=== PATIENT | male | born 1990 | race Caucasian/White ===

== ENCOUNTER 2017-03-01 12:47 | Emergency (ER) | payer OTHER ==
[~2017-03-01] VITALS: Ht 167.6 cm; Wt 90.0 kg
[~2017-03-01 12:47] MED LIST: ADV25050; BENADRYL; CARB200T92; LEVA0.3112; MONT10TA21; NAPR250T; OMEP20CA16 PO; RANI150T9 PO
[2017-03-01 12:50] VITALS: Ht 167.6 cm; Wt 90.0 kg
--- NOTE | 2017-03-01 15:53 | ERD ---
ER Documentation Chief Complaint Date/Time DATE: 03/01/17 TIME: 15:52 Chief Complaint neck pain rad shoulders since wednesday HPI 26-year-old male presents with right lateral neck pain that is sharp shooting to his shoulder and right chest that started 3 days ago after he took out the trash. He also states that he has had a headache with this, it is achy, diffuse and has been intermittent for the last 3 days but improving with medication. His history includes epilepsy which she takes Tegretol and he has a prescription for Tylenol with codeine for pain any try this for his headache which has improved. He has not had any aura, seizures, fevers or chills, dizziness, diplopia, paresthesias or weakness. Patient denies trauma to the neck. He denies stiffness, rashes. ROS All systems reviewed and are negative except as per history of present illness. Medications Home Meds Active Scripts Cyclobenzaprine Hcl* (Cyclobenzaprine Hcl*) 5 Mg Tablet, 5 MG PO Q8H Y for PAIN , #15 TAB Prov:NARINDER FRANCISCO PA-C 03/01/17 Ranitidine Hcl* (Zantac*) 150 Mg Tablet, 150 MG PO BID Y for NAUSEA, #30 TAB Prov:NARINDER FRANCISCO PA-C 10/22/14 Omeprazole* (Omeprazole*) 20 Mg Capsule.dr, 20 MG PO BID for 7 Days, CAP Prov:NARINDER FRANCISCO PA-C 10/22/14 Reported Medications Montelukast Sodium* (Singulair*) 10 Mg Tablet 12/31/09 Benadryl 12/31/09 Levalbuterol* (Xopenex*) 0.31 Mg/3 Ml Nebu 12/31/09 Salmeterol Xinaf/Fluticasone* (Advair 250/50 Diskus*) 1 Inh Inha 12/31/09 Naproxen* (Naprosyn*) 250 Mg Tablet 12/31/09 Carbamazepine (Tegretol) 200 Mg Tablet 12/31/09 Allergies Allergies: Coded Allergies: No Known Drug Allergies (Verified Allergy, Mild, 10/22/14) PMhx/Soc History of Surgery: Yes ( LOWER BACK.NASAL POLYP REMOVAL) Anesthesia Reaction: No Hx Neurological Disorder: Yes (SEIZURES) Hx Respiratory Disorders: Yes (ASTHMA) Hx Cardiac Disorders: Yes (HTN) Hx Psychiatric Problems: No Hx Miscellaneous Medical Probl: No Hx Alcohol Use: No Hx Substance Use: No Hx Tobacco Use: No Physical Exam Vitals Vital Signs Date Time Temp Pulse Resp B/P Pulse Ox O2 Delivery O2 Flow Rate FiO2 03/01/17 12:50 98.1 90 18 144/90 99 Physical Exam General: Well-developed, well-nourished. The patient appears in no acute distress. HEENT: Head is normocephalic, atraumatic. No scleral icterus. Neck: Supple. Nontender. Tender at the lateral portion of C5 at the right side. There is no midline tenderness or crepitus, no masses. No meningismus. Lungs: Clear to auscultation. Normal air movement. Heart: Regular rate and rhythm. S1 and S2 are normal. No murmurs, gallops, or rubs. Abdomen: Soft, nontender, nondistended. Bowel sounds are normoactive. Extremities: No clubbing or cyanosis. Normal pulses. Moving extremities x 4. No weakness. Neurologic: Alert and oriented 3. No focal deficits. Gait normal. Skin: Normal turgor. No rash or lesions. Results 24 hrs DIAGNOSTIC IMAGING REPORT Patient: ZEINAB MOHR : 1990 Age: 26 Sex: M [id number] DOS: 03/01/17 1531 Ordering MD: NARINDER FRANCISCO PA-C Location: [facility] Room/Bed: PROCEDURE: XR Cervical Spine. CLINICAL INDICATION: Cervical spine pain. TECHNIQUE: AP, lateral and odontoid views of the cervical spine were performed. The images were reviewed on a PACS workstation. COMPARISON: None. FINDINGS: There is diffuse straightening of the cervical spine without reversal of normal cervical lordosis. 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 The remaining vertebral body heights are maintained. The marrow density is within normal limits. There is no evidence of fracture or dislocation. There is no significant facet arthropathy. The uncovertebral joints are unremarkable. There are minimal anterior osteophytes at C5-6 and C6-7 with preservation of the intervertebral disc spaces. There are no abnormal calcifications. The prevertebral soft tissues are normal. No radiopaque foreign bodies are identified. IMPRESSION: 1. Diffuse straightening of the cervical spine which may be related to paraspinal muscle spasm versus positioning. 2. 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 3. Mild spondylosis at C5-6 and C6-7. 4. No evidence of fracture. RPTAT: HGAS .Carlos Curry MD, Date Time Electronically viewed and signed by .Carlos Curry MD, on 03/01/2017 16: 38 .S/ CC: NARINDER FRANCISCO PA-C Procedures/MDM 26-year-old male presents emergency department with right lateral neck pain,\ he does not show any signs of meningitis, neck mass, airway threatening process. Patient's pain is a new onset, x-rays show evidence of cervical spondylosis, and there is fusion of C4 and C5. There are no acute findings at this time. There is also cervical straightening patient will be advised to continue Tylenol codeine as needed, and he will also be given Flexeril. He is to follow-up with his primary care doctor, copy of the x-rays were provided to him which he may take with him and I have asked him to follow-up with his PCP for physical therapy. Departure Diagnosis: Primary Impression: Neck pain Additional Impression: Cervical spondylosis Condition: Good NARINDER FRANCISCO PA-C Mar 01, 2017 15:53
--- NOTE | 2017-03-01 16:38 | RADRPT ---
PROCEDURE: XR Cervical Spine. CLINICAL INDICATION: Cervical spine pain. TECHNIQUE: AP, lateral and odontoid views of the cervical spine were performed. The images were re viewed on a PACS workstation. COMPARISON: None. FINDINGS: There is diffuse straightening of the cervical spine without reversal of normal cervical lordosis. 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 The remaining vertebral body heights a re maintained. The marrow density is within normal limits. There is no evidence of fracture or dislo cation. There is no significant facet arthropathy. The uncovertebral joints are unremarkable. There are minimal anterior osteophytes at C5-6 and C6-7 with preservation of the intervertebral disc space s. There are no abnormal calcifications. The prevertebral soft tissues are normal. No radiopaque for eign bodies are identified. IMPRESSION: 1. Diffuse straightening of the cervical spine which may be related to paraspinal muscle spasm vers us positioning. 2. 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 3. Mild spondylosis at C5-6 and C6-7. 4. No evidence of fracture. RPTAT: HGAS .Carlos Curry MD, Date Time Electronically viewed and signed by .Carlos Curry MD, on 03/01/2017 16:38 .S/
[2017-03-01] MEDS ORDERED: CYCL5TAB PO (16:54)
[2017-03-01 17:40] VITALS: BP 144/86; PULSE 72; RESP 16; TEMP 98
== END 2017-03-01 17:40 | disposition home or self-care (01) ==
LOC: FTE 12:47
DX: M47.812 Spondylosis without myelopathy or radiculopathy, cervical region (principal); I10 Essential (primary) hypertension; J45.909 Unspecified asthma, uncomplicated
CPT/HCPCS: 72040; Z7502

== ENCOUNTER 2017-12-06 07:46 | Emergency (ER) | END 2017-12-06 09:58 | disposition home or self-care (01) ==